=== PATIENT | male | born 1955 | race Caucasian/White ===

== ENCOUNTER → 2018-02-11 | Outpatient (CLI) | payer BC ==
[2018-02-11 12:50] LABS: Basophils # (A) 0.1 k/uL (0-0.2); Basophils % (A) 1 %; Eosinophils # (A) 0.5 k/uL (0-0.7); Eosinophils % (A) 6 %; HCT 48.9 % (39.0-53.0); HGB 15.7 gm/dL (13.0-17.5); Lymphocytes # (A) 2.1 k/uL (1.0-4.8); Lymphocytes % (A) 24 %; MCH 30.8 pg (25.0-35.0); MCHC 32.1 g/dL (31.0-37.0); Mean Platelet Volume 6.8; Monocytes # (A) 0.6 k/uL (0-1.0); Monocytes % (A) 7 %; Neutrophils # (A) 5.3 k/uL (1.3-7.7); Neutrophils % (A) 60 %; Platelet Count 272 k/uL (150-450); RDW 12.8 % (11.5-15.5); WBC 8.8 k/uL (3.8-10.6)
[2018-02-11 13:07] LABS: Anion Gap 7 mmol/L; Blood Urea Nitrogen 17 mg/dL (9-20); Calcium 9.1 mg/dL (8.4-10.2); Carbon Dioxide 25 mmol/L (22-30); Chloride 108 mmol/L (98-107); Glucose 134 mg/dL (74-99); Potassium 4.8 mmol/L (3.5-5.1); Sodium 140 mmol/L (137-145)
== END | disposition home or self-care (01) ==
LOC: LABPAT 11:39
PROVIDERS: ATTEND Urology
DX: Z01.812 Encounter for preprocedural laboratory examination (principal); N43.3 Hydrocele, unspecified; Z79.899 Other long term (current) drug therapy
CPT/HCPCS: 36415; 80048; 85025

== ENCOUNTER 2018-02-19 08:46 | Day surgery (SDC) | payer BC ==
[2018-02-13 14:32] VITALS: BMI 34.9
--- NOTE | 2018-02-18 14:08 | P.GSHP ---
History of Present Illness H&P Date: 02/14/18 Chief Complaint: Scrotal swelling The patient is a 62-year-old white male whom I initially saw in June 2015 with bilateral hydroceles, larger on the right. He has become increasingly symptomatic, and a recent ultrasound confirms the presence of bilateral hydroceles, greater on the right. A small extratesticular lesion with a calcified center was also noted within the left hemiscrotum. He has elected to undergo a bilateral hydrocele repair. - Constitutional Constitutional: Denies chills, Denies fever - Neurological Neurological: Reports tingling Past Medical History Past Medical History: Diabetes Mellitus Additional Past Medical History / Comment(s): bulging disc lower back, diabetes diet controlled, bilateral hydroceles, psoriasis History of Any Multi-Drug Resistant Organisms: None Reported Additional Past Surgical History / Comment(s): cyst lt wrist, cyst back of neck on left Past Anesthesia/Blood Transfusion Reactions: No Reported Reaction Smoking Status: Current every day smoker - Past Family History Mother Family Medical History: No Reported History Medications and Allergies Home Medications Medication Instructions Recorded Confirmed Type HYDROcodone/APAP 10-325MG [[place] 1 tab PO BID 02/13/18 02/13/18 History 10-325] Allergies Allergy/AdvReac Type Severity Reaction Status Date / Time No Known Allergies Allergy Verified 02/13/18 14:20 Surgical - Exam - General well developed, well nourished, no distress - Respiratory normal respiratory effort, clear to auscultation - Cardiovascular Rhythm: regular Abnormal Heart Sounds: no systolic murmur, no diastolic murmur, no rub, no S3 Gallop, no S4 Gallop, no click, no other - Abdomen Abdomen: soft, non tender, no guarding, no rigid, no rebound Hernia: none - Genitourinary normal penis with no external lesions, other (Large right hydrocele, probable small left hydrocele) Assessment and Plan (1) Hydrocele in adult Status: Acute Code(s): N43.3 - HYDROCELE, UNSPECIFIED SNOMED Code(s): 10714947222577 Plan: Bilateral hydrocele repair. The procedure has been reviewed in detail with the patient. Potential risks include anesthesia, bleeding, infection, testicular injury, and recurrent hydrocele.
[~2018-02-19 08:46] MED LIST: LACTATED RINGERS 1,000 ML IV SCH; ONDANSETRON 4 MG/2 ML VIAL IVP ONE; fentaNYL (PF) 50 MCG/ML 2 ML AMP IV PRN
[2018-02-19 09:26] LABS: Glucose,Whole Blood 158 mg/dL (75-99)
[2018-02-19] MEDS ORDERED: LIDOCAINE 1% 20 ML VIAL (10MG/ML) FOR IV START INTRADERMA ONE (09:30)
[2018-02-19] MEDS ORDERED: fentaNYL (PF) 50 MCG/ML 2 ML AMP ONE (10:14)
[2018-02-19] MEDS ORDERED: NEOSTIGMINE 1 MG/ML 10 ML VIAL ONE (10:14)
[2018-02-19] MEDS ORDERED: ROCURONIUM BROMIDE 10 MG/ML 10 ML VIAL IV ONE (10:14)
[2018-02-19] MEDS ORDERED: PROPOFOL 10 MG/ML 20 ML VIAL IV ONE (10:14)
[2018-02-19] MEDS ORDERED: SUCCINYLCHOLINE CHLORIDE 100 MG/5 ML SYR IV ONE (10:14)
[2018-02-19] MEDS ORDERED: LIDOCAINE 1% INJ 10MG/ML (20 ML MDV) ONE (10:14)
[2018-02-19] MEDS ORDERED: GLYCOPYRROLATE 0.2 MG/ML 2 ML VIAL ONE (10:14)
[2018-02-19] MEDS ORDERED: BUPIVACAINE (PF) 0.25% 30 ML VIAL SQ ONE (10:34)
[2018-02-19] MEDS ORDERED: LACTATED RINGERS 1,000 ML IV ONE ×3 (11:05→12:54)
--- NOTE | 2018-02-19 11:41 | P.OP ---
Date of Procedure: 02/19/18 Preoperative Diagnosis: Bilateral Non-communicating Hydroceles Postoperative Diagnosis: Same Procedure(s) Performed: Bilateral Hydrocele Repair Anesthesia: LUIS Surgeon: Migel Reagan Estimated Blood Loss (ml): 20 IV fluids (ml): 800 Pathology: none sent Condition: stable Disposition: PACU Indications for Procedure: The patient is a 62-year-old white male whom I initially saw in June 2015 with bilateral hydroceles, larger on the right. He has become increasingly symptomatic, and a recent ultrasound confirms the presence of bilateral hydroceles, greater on the right. A small extratesticular lesion with a calcified center was also noted within the left hemiscrotum. He has elected to undergo a bilateral hydrocele repair. Operative Findings: Bilateral non-communicating hydrocele, right larger than left. Description of Procedure: The patient was taken to the operating room and placed in the supine position. The external genitalia was prepped and draped sterilely. The scalpel was used to make an anterior midline scrotal incision. Bovie electrocautery was used to incise these underlying dartos fascia, down to the right hydrocele sac. The hydrocele sac was opened, and fluid was drained. The testicle was then delivered through the incision. The testicle appeared normal. The redundant hydrocele sac was excised. It was fairly vascular. The edge of the hydrocele sac was oversewn using 3-0 Vicryl suture in a running fashion for hemostasis. Excellent hemostasis was attained. 0.25% Marcaine was injected into the spermatic cord. The testicle was returned to the right hemiscrotum, and the dartos fascia was closed using 3-0 Vicryl suture in a running fashion. The same was then repeated on the left side. A smaller amount of fluid was drained. The hydrocele sac wall was then used, rather than thick and vascular as it was on the right side. A 5 mm calcification was removed from the left hemiscrotum. After closing the dartos fascia on the left side, the skin was closed using 3-0 chromic suture in a running fashion. Surgical fluffs were placed over the incision, followed by scrotal support. All sponge and needle counts were correct. The patient tolerated the procedure well was taken to the recovery room in stable condition.
[2018-02-19 11:58] VITALS: TEMP 97.3
[2018-02-19] MEDS: HYDROmorphone 0.5 MG/0.5 ML SYRINGE IVP PRN ×4 (12:00→12:33)
[2018-02-19 12:17] VITALS: RESP 16
[2018-02-19] MEDS ORDERED: MEPERIDINE 50 MG/ML SYRINGE IVP ONE (12:53)
[2018-02-19 13:17] LABS: Glucose,Whole Blood 159 mg/dL (75-99)
[2018-02-19] MEDS ORDERED: HYDROcodone/APAP 10-325MG 1 EACH TAB PO ONE (14:13)
[2018-02-19 14:40] VITALS: BP 116/76; PULSE 70
== END 2018-02-19 15:10 | disposition home or self-care (01) ==
LOC: OR 08:46
PROVIDERS: ATTEND Urology
DX: N43.3 Hydrocele, unspecified (principal); N50.89 Other specified disorders of the male genital organs; E11.9 Type 2 diabetes mellitus without complications; L40.9 Psoriasis, unspecified; F17.200 Nicotine dependence, unspecified, uncomplicated; Z79.891 Long term (current) use of opiate analgesic
CPT/HCPCS: 55041; J2710; J2175; J0690; J2405; J2001; J3010; J0330; J2704; J1170

== ENCOUNTER 2024-11-19 07:51 | Day surgery (SDC) | payer BC, MEDICARE ==
[2024-11-19] MEDS ORDERED: LIDOCAINE 1% (10MG/ML) FOR IV START INTRADERMA PRN (08:13)
[2024-11-19] MEDS: IV FLUID CONTINUATION 1,000 ML IV ONE (08:17)
[2024-11-19 08:33] VITALS: RESP 16; TEMP 97
[2024-11-19] MEDS: LACTATED RINGERS 1,000 ML IV SCH (08:36)
[2024-11-19 08:38] LABS: Glucose,Whole Blood 147 mg/dL (70-110)
[2024-11-19] MEDS ORDERED: PROPOFOL 10 MG/ML 20 ML VIAL IV ONE (09:22)
[2024-11-19] MEDS ORDERED: MIDAZOLAM 2 MG/2 ML VIAL ONE (09:22)
[2024-11-19] MEDS ORDERED: LIDOCAINE 1% INJ 10MG/ML (20 ML MDV) ONE (09:22)
[2024-11-19] MEDS ORDERED: fentaNYL (PF) 50 MCG/ML 2 ML AMP ONE (09:22)
--- NOTE | 2024-11-19 09:49 | P.PCN ---
Date of Procedure: 11/19/24 Procedure(s) Performed: Brief history: Patient is a pleasant 69-year-old white male scheduled for an elective upper endoscopy as well as colonoscopy as a part of evaluation of GERD and screening for colon cancer Procedure performed: Esophagogastroduodenoscopy with biopsy Colonoscopy with biopsy and cold snare polypectomy Preoperative diagnosis: GERD Screening for colon cancer Anesthesia: MAC Procedure: After informed consent was obtained from the patient was brought into the endoscopy unit and IV sedation was administered by anesthesia under continuous monitoring. Initially upper endoscopy was done. The Olympus GF 160 video endoscope was inserted inserted into the mouth and esophagus intubated without any difficulty and was gradually advanced into the stomach and duodenum and carefully examined. The bulb and second part of the duodenum appeared normal. The scope was then withdrawn into the stomach adequately insufflated with air and upon careful examination the antrum had patchy areas of erythema consistent with gastritis and biopsies were done from this area. Mucosa d body, cardia and fundus appeared normal. The scope was then withdrawn into the esophagus. The GE junction was located at 40 cm to the incisors. It appeared regular with no erythema erosions or ulcerations. Rest of the esophagus appeared normal. Patient tolerated the procedure well. At this time the patient continued to remain sedation. Initial digital rectal examination was normal. Olympus CF 160 video colonoscope was then inserted into the rectum and gradually advanced to the cecum without any difficulty. Careful examination was performed as the scope was gradually being withdrawn. The prep was excellent. The cecum, ascending colon, appeared normal. In the transverse colon there was a 3 mm polyp that was removed by cold biopsy. Rest of the transverse colon, descending colon, normal. The sigmoid colon there was a 6 mm polyp removed by cold snare polypectomy. Rest of the sigmoid colon and rectum appeared normal. Retroflexion was performed in the rectum and no lesions were noted. Patient tolerated the procedure well. Impression: 1. Upper endoscopy revealed mild antral gastritis but no evidence of esophagitis or peptic ulcer disease 2. Colonoscopy revealed 3 mm transverse colon polyp status post cold biopsy and 6 mm sigmoid colon polyp status post cold snare polypectomy Recommendations: Findings of this examination were discussed with the patient as well as his family. He was advised to follow-up with the biopsy results. If the biopsy reveals adenoma he can have repeat colonoscopy in 5 years to
[2024-11-19 10:25] VITALS: BP 125/75; PULSE 82
== END 2024-11-19 11:01 | disposition home or self-care (01) ==
LOC: ORWHC2ENDO 07:51
PROVIDERS: ATTEND Internal Medicine Gastroenterology
DX: Z12.11 Encounter for screening for malignant neoplasm of colon (principal); K21.00 Gastro-esophageal reflux disease with esophagitis, without bleeding; D12.3 Benign neoplasm of transverse colon; D12.5 Benign neoplasm of sigmoid colon; E11.9 Type 2 diabetes mellitus without complications; F17.200 Nicotine dependence, unspecified, uncomplicated; Z79.84 Long term (current) use of oral hypoglycemic drugs; Z79.85 Long-term (current) use of injectable non-insulin antidiabetic drugs
CPT/HCPCS: 43239; 45380; 45385; 88305